=== PATIENT | male | born 1975 | race Caucasian/White ===

== ENCOUNTER → 2018-05-15 | Outpatient (CLI) | payer BC ==
--- NOTE | 2018-05-15 16:54 | RT STRESS TEST REPORT ---
FACILITY: [facility] [place] PATIENT NAME: THIERRY CH : [id number] MR: [id number]: [id number] EXAM DATE: ORDERING PHYSICIAN: CEM PHAM TECHNOLOGIST: Daniel Acquisition Time: 2018-05-15 09:20:28 Total Exercise Time: 00:13:59 Test Indications: Chest Pain Medications: Protocol: LAURYN 2 Max HR: 179 BPM 100% of Pred: 179 BPM Max BP: 153/088 mmHG Max Work Load: 18.7 METS Impression Excellent exercise tolerance Impression No EKG changes to suggest ischemia Resting B.P. was above normal Confirmed by FELIX BLOUNT ([id number]) on 05/15/2018 4:54:07 PM Referred By: Overread By: FELIX BLOUNT
== END ==
LOC: RESP 00:29
PROVIDERS: ATTEND Family Medicine
DX: R07.2 Precordial pain (principal)
CPT/HCPCS: 93017